=== PATIENT | female | born 1985 | race African-American/Black ===

== ENCOUNTER 2023-10-10 15:05 | Emergency (ER) | payer MEDICAID ==
[~2023-10-10] VITALS: Ht 165.1 cm; Wt 142.0 kg
[2023-10-10 15:21] VITALS: TEMP 98.2; O2SAT 98
[2023-10-10 17:49] LABS: CLARITY URINE CLEAR (CLEAR); COLOR URINE YELLOW (YELLOW); GLUCOSE URINE NEGATIVE (NEGATIVE); KETONES URINE TRACE (NEGATIVE); LEUKOCYTE ESTERASE URINE NEGATIVE (NEGATIVE); NITRITE URINE NEGATIVE (NEGATIVE); OCCULT BLOOD URINE NEGATIVE (NEGATIVE); PROTEIN URINE NEGATIVE (NEGATIVE); SPECIFIC GRAVITY URINE 1.031 (1.005-1.030); UROBILINOGEN URINE 0.2 E.U./dL (0.2-1.0)
[2023-10-10] MEDS: CEFTRIAXONE SODIUM 500MG VIAL IM ONE (18:08)
[2023-10-10] MEDS ORDERED: DOXY100T2 MT (18:35)
[2023-10-10] MEDS ORDERED: FLUC150T46 MT (18:35)
[2023-10-10 18:55] VITALS: BP 160/90; PULSE 65; RESP 14
== END 2023-10-10 18:56 | disposition home or self-care (01) ==
LOC: ER 15:05
DX: N89.8 Other specified noninflammatory disorders of vagina (principal); R30.9 Painful micturition, unspecified; Z98.890 Other specified postprocedural states
CPT/HCPCS: 87491; 87591; 81003; 81025; 86592; 87210; 36415; 96372; 99283; J0696; Z7610 ×2